=== PATIENT | female | born 1990 | race Hispanic/Latino ===

== ENCOUNTER → 2018-05-20 | Day surgery (SDC) | payer BC ==
[2018-05-16 09:12] LABS: BASOPHILS % 0.5 % (0.0-1.0); EOSINOPHILS # (AUTO) 0.1 (0.0-0.4); EOSINOPHILS % 2.1 % (0.0-6.0); HEMATOCRIT 35.7 % (34.2-44.1); HEMOGLOBIN 11.7 g/dL (12.0-16.0); LYMPHOCYTES # (AUTO) 2.3 (1.0-3.2); LYMPHOCYTES % 37.9 % (18.0-39.1); MEAN CORPUSCULAR HEMOGLOBIN 28.8 pg (28-32); MEAN CORPUSCULAR HGB CONC 32.8 g/dL (31-35); MEAN CORPUSCULAR VOLUME 87.9 fL (81-99); MONOCYTES # (AUTO) 0.4 (0.2-0.8); MONOCYTES % 6.3 % (4.4-11.3); NEUTROPHILS # (AUTO) 3.3 (2.1-6.9); NEUTROPHILS % 52.9 % (38.7-80.0); PLATELET COUNT 245 x10e3/uL (140-360); RED BLOOD COUNT 4.06 x10e6/uL (3.6-5.1); RED CELL DISTRIBUTION WIDTH 13.3 % (11.7-14.4)
[2018-05-16 10:29] LABS: ALANINE AMINOTRANSFERASE 22 IU/L (0-55); ALBUMIN 4.1 g/dL (3.5-5.0); ALBUMIN/GLOBULIN RATIO 1.4 (0.8-2.0); ALKALINE PHOSPHATASE 77 IU/L (40-150); ANION GAP 14.2 mmol/L (8-16); BLOOD UREA NITROGEN 8 mg/dL (7-26); BUN/CREATININE RATIO 12 (6-25); CALCIUM 8.4 mg/dL (8.4-10.2); CARBON DIOXIDE 25 mmol/L (22-29); CHLORIDE 105 mmol/L (98-107); CREATININE, SERUM 0.69 mg/dL (0.57-1.11); EST GLOMERULAR FILTRATION RATE > 60 ML/MIN (60-); GLUCOSE 93 mg/dL (74-118); POTASSIUM 4.2 mmol/L (3.5-5.1); SODIUM 140 mmol/L (136-145)
[~2018-05-20] MED LIST: DEXAMETHASONE SOD PHOS INJ 4 MG/ML VIAL ONE; FENTANYL CITRATE/PF 100MCG/2 ML INJ ONE; KETOROLAC TROMETHAMINE 30 MG/ML VIAL ONE; LIDOCAINE HCL 2% LOCAL INJ 5 ML SDV VIAL INJ ONE; MEPERIDINE HCL INJ 50 MG/ML INJ ONE; MIDAZOLAM HCL 2 MG/2 ML VIAL ONE; ONDANSETRON HCL INJ 2 MG/ML VIAL ONE; PROPOFOL IV EMULSION 10 MG/ML 20 ML VIAL ONE; SEVOFLURANE INHAL SOLN 250 ML PEN BTL ONE; [UNRECOGNIZED DRUG - OTHER] PO
--- NOTE | 2018-05-20 14:43 | Operative Report ---
DATE OF PROCEDURE: May 20, 2018 PREOPERATIVE DIAGNOSES 1. Abnormal uterine bleeding. 2. Intrauterine myoma. POSTOPERATIVE DIAGNOSES 1. Abnormal uterine bleeding. 2. Intrauterine myoma. PROCEDURE PERFORMED 1. Hysteroscopic myomectomy. 2. Dilatation and curettage. COMPLICATIONS: None. ESTIMATED BLOOD LOSS: Minimal. DESCRIPTION OF PROCEDURE: The patient was taken to the OR where general anesthesia was placed. She was prepped and draped in the normal sterile fashion and placed in the dorsal lithotomy position. Examination under anesthesia showed the uterus was anteverted, mobile. No adnexal masses. A weighted speculum was placed inside the vagina, and the cervix was grasped with an Allis. Cervix was dilated to a Hegar 8. The cavity length measured with uterine sound about 8 cm. Hysteroscope was introduced. Using the TRUCLEAR hysteroscope inside the cavity of the uterus using saline, uterine distention showed small intracavitary submucous myoma of about 1.5 cm. Using the mini ultrathin shaver, it was introduced through the hysteroscope, and under direct visualization the myoma was removed and suctioned out. The hysteroscope was removed. Sharp curettings were obtained and sent to pathology. Patient tolerated the procedure well. Lap, instrument and needle count was correct x2 at the end of the procedure. Job#: [id number] TORSTEN
[2018-05-20 16:06] VITALS: BP 97/59
== END | disposition home or self-care (01) ==
LOC: OR 10:34
PROVIDERS: ATTEND Obstetrics & Gynecology
DX: D25.0 Submucous leiomyoma of uterus (principal); N93.9 Abnormal uterine and vaginal bleeding, unspecified
CPT/HCPCS: 36415; 58561; 80053; 81025; 84702; 85025; 88305; J1100; J1885; J2001; J2175; J2250; J2405; J2704